=== PATIENT | female | born 1995 | race American Indian/Alaskan Native ===

== ENCOUNTER 2020-07-18 11:06 | Emergency (ER) | payer OTHER ==
[2020-07-18 11:21] VITALS: BP 119/82
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
== END 2020-07-18 12:34 | disposition home or self-care (01) ==
LOC: ED 11:06
DX: S29.019A Strain of muscle and tendon of unspecified wall of thorax, initial encounter (principal); V49.49XA Driver injured in collision with other motor vehicles in traffic accident, initial encounter; Y93.89 Activity, other specified; Y92.89 Other specified places as the place of occurrence of the external cause; Y99.8 Other external cause status
CPT/HCPCS: 99282